=== PATIENT | female | born 1975 | race Caucasian/White ===

== ENCOUNTER → 2024-09-28 14:19 | Outpatient (REF) | payer OTHER, MEDICARE, SELFPAY | LOC: WDC 14:19 | PROVIDERS: ATTENDING PHYSICIAN Physician Assistant Medical | DX: Z12.31 Encounter for screening mammogram for malignant neoplasm of breast (principal) | CPT/HCPCS: 77063; 77067 ==

== ENCOUNTER 2025-07-31 06:56 | Outpatient (RCR) | payer OTHER, SELFPAY | END 2025-08-01 09:22 | disposition home or self-care (01) | LOC: ROT 06:56 | PROVIDERS: ATTENDING PHYSICIAN Physician Assistant Medical | DX: R26.89 Other abnormalities of gait and mobility (principal); Z73.6 Limitation of activities due to disability; M54.9 Dorsalgia, unspecified; Z74.1 Need for assistance with personal care; Q90.9 Down syndrome, unspecified | CPT/HCPCS: 97167; 97535 ==